=== PATIENT | female | born 1965 | race Caucasian/White ===

== ENCOUNTER 2017-11-02 14:25 | Emergency (ER) | payer MEDICAID ==
[~2017-11-02] VITALS: Ht 170.2 cm; Wt 75.0 kg
[~2017-11-02 14:25] MED LIST: ADVA100A INH; ATEN50TA PO; BACL20TA PO; BUTA1CAP PO; CALTTAB PO; CYMB60CA PO; DICL1GEL7 TOPICAL; GABA300C5 PO; HYDR50TA94 PO; LACT10SO PO; LEVO.05 PO; LISI-515 PO; LORA10TA PO; LORA1POW7; MELO15TA20 PO; OMEP40CA2 PO; PLAQ200T PO; TRAZ50TA12 PO
[2017-11-02 14:26] VITALS: BP 162/89; PULSE 90; RESP 18; TEMP 98.7; O2SAT 100
[2017-11-02] MEDS ORDERED: IBUP1TAB7 PO (15:28)
[2017-11-02] MEDS ORDERED: PROMSYP3 PO (15:28)
--- NOTE | 2017-11-02 15:35 | PD ---
HPI . Chest pain Chief Complaint: Cold / Flu Symptoms Time Seen by Provider: 15:18 Travel History International Travel<30 days: No Contact w/Intl Traveler<30days: No Traveled to known affect area: No History of Present Illness HPI This patient presents with a chief complaint of chest discomfort associated with coughing. Onset was 3 days ago. Symptoms are continuous. She rates her pain 7/10. Her symptoms have been unrelieved by [id number]-[id number] cough syrup. PFSH Past Medical History Anemia: Yes Arthritis: Yes (RHEUMATOID) Asthma: Yes Autoimmune Disease: Yes (RHEU ARTHRITIS) Blood Disorders: Yes (ANEMIA) Anxiety: Yes Depression: Yes Cancer: Yes (UTERINE AND OVARIAN) Cardiovascular Problems: Yes Chemotherapy: Yes Diabetes: Yes Diminished Hearing: No Endocrine: Yes Gastrointestinal Disorders: No Genitourinary: No Implanted Vascular Access Dvce: No Neurologic: No Psychiatric: Yes (PTSD) Reproductive: No Respiratory: Yes (COPD) Immunizations Current: Yes Thyroid Disease: Yes PNEUMOCCOCAL Vaccine (Year): 2 Menopausal: Yes Past Surgical History Abdominal Surgery: Yes (BOWEL RESECTION FOR CA) Appendectomy: Yes Gynecologic Surgery: Yes (HYSTERECTOMY) Hysterectomy: Yes Thoracic Surgery: Yes (CHEST TUBE FOR PNEUMO) Tonsillectomy: Yes Other Surgery: Yes (BREAST AUGMENTATION) Social History Alcohol Use: Yes (OCCASIONAALY) Tobacco Use: Yes (5 CIGS A DAY) Substance Use: No (MARIJUANA FORMER) Allergies-Medications (Allergen,Severity, Reaction): Coded Allergies: Sulfa (Sulfonamide Antibiotics) (Unverified Allergy, Severe, TOPICAL - TALBOT, INTERNAL = HEMMORAGE, 05/21/17) codeine (Unverified Allergy, Severe, HIVES, ITCH, LOCK JAW, 05/21/17) tramadol (Unverified Allergy, Severe, CANNOT TAKE WITH THYROID MED., ) ondansetron (Unverified Allergy, Unknown, Nausea/Vomiting, 05/21/17) Reported Meds & Prescriptions Reported Meds & Active Scripts Active Promethazine-Dextromethorphan Liq (Dextromethorphan-Promethazine Liq) 6.25-15 Mg /5 Ml Syrp 10 Ml PO Q6HR Ibuprofen 800 Mg Tab 800 Mg PO Q8H PRN Lactulose Liq (Lactulose) 10 Gm/15 Ml Soln 15 Ml PO HS Caltrate 600+D (Calcium Carbonate-Cholecalciferol) 600-800 Mg-Unit Tab 1 Tab PO BID Cymbalta DR (Duloxetine HCl) 60 Mg Capdr 2 Tab PO DAILY Gabapentin 300 Mg Cap 400 Mg PO QID Fioricet (Ffykvxvwxl-Wbdmaesjzdwub-Hjgstsvp) 50-300-40 Mg Cap 1 Cap PO Q4HR PRN Reported Trazodone (Trazodone HCl) 50 Mg Tab 50 Mg PO HS Meloxicam 15 Mg Tab 15 Mg PO DAILY Loratadine 10 Mg Tab 10 Mg PO DAILY Loratadine (Loratadine (Bulk)) 1 Pow Pow Lisinopril 20 Mg Tab 20 Mg PO DAILY Hydroxyzine HCl 50 Mg Tab 50 Mg PO QID PRN Atenolol 50 Mg Tab 50 Mg PO DAILY Advair Diskus Inh (Fluticasone-Salmeterol Inh) 100-50 Mcg/Blist Aer 1 Puff INH BID Rinse mouth after use. Baclofen 20 Mg Tab 20 Mg PO BID Synthroid (Levothyroxine Sodium) 50 Mcg Tab 50 Mcg PO DAILY Omeprazole 40 Mg Cap 40 Mg PO DAILY Plaquenil (Hydroxychloroquine Sulfate) 200 Mg Tab 200 Mg PO BID Take with food Diclofenac Topical 1% Gel 1 Applic TOPICAL QID Review of Systems Except as stated in HPI: all other systems reviewed are Neg General / Constitutional: No: Fever, Chills Cardiovascular: Positive: Chest Pain or Discomfort Respiratory: Positive: Cough Physical Exam Narrative GENERAL: Awake and alert and in no acute distress. SKIN: warm/dry. Normal color and turgor. HEAD: Normocephalic. Atraumatic. EYES: Pupils equal and round. No scleral icterus. No injection or drainage. ENT: No nasal bleeding or discharge. Mucous membranes pink and moist. NECK: Trachea midline. Full range of motion without pain.. CARDIOVASCULAR: Regular rate and rhythm. She is not tachycardic. Heart sounds are normal. RESPIRATORY: No accessory muscle use. Clear to auscultation. Breath sounds equal bilaterally. She is not tachypneic. Sats are 100% on room air. GASTROINTESTINAL: Abdomen soft. Nontender. Bowel sounds present. Nondistended. MUSCULOSKELETAL: No obvious deformities. NEUROLOGICAL: Awake and alert. No obvious cranial nerve deficits. Motor grossly within normal limits. Normal speech. PSYCHIATRIC: Appropriate mood and affect; insight and judgment normal. Data Data Last Documented VS Vital Signs Date Time Temp Pulse Resp B/P (MAP) Pulse Ox O2 Delivery O2 Flow Rate FiO2 11/02/17 14:26 98.7 90 18 162/89 (113) 100 Room Air Orders Orders Electrocardiogram (11/02/17 ) Ed Discharge Order (11/02/17 15:28) MDM Medical Decision Making Medical Screen Exam Complete: Yes Emergency Medical Condition: Yes Interpretation(s) EKG shows a normal sinus rhythm with no acute ischemic change. It is a normal EKG. Differential Diagnosis Differential diagnosis of chest pain includes but is not limited to musculoskeletal pain, pulmonary embolism, acute coronary syndrome, pneumonia, pleurisy Narrative Course Patient presents with chest discomfort associated with coughing. She has a normal EKG. Her physical exam is unremarkable. She will be treated symptomatically with Phenergan and Phenergan DM. She reports allergy to codeine. Diagnosis Primary Impression: Cough Patient Instructions: General Instructions Departure Forms: Tests/Procedures Scripts Dextromethorphan-Promethazine Liq (Promethazine-Dextromethorphan Liq) 6.25-15 Mg /5 Ml Syrp 10 ML PO Q6HR for cough, #120 Prov: Jessica Willams MD 11/02/17 Ibuprofen (Ibuprofen) 800 Mg Tab 800 MG PO Q8H Y for Pain/Inflammation, #60 TAB 0 Refills Prov: Jessica Willams MD 11/02/17 Disposition: 01 DISCHARGE HOME Condition: Stable Jessica Willams MD Nov 02, 2017 15:35
--- NOTE | 2017-11-03 12:26 | EKG ---
Date Performed: 11/02/2017 Time Performed: 14:36:52 PTAGE: 52 years EKG: Sinus rhythm NORMAL ECG PREVIOUS TRACING : 10/18/2010 01.52 Since the prior tracing, there has been no significant [place] DOCTOR: Alberto Anguiano Interpretating Date/Time 11/03/2017 12:23:20
== END 2017-11-02 15:43 | disposition home or self-care (01) ==
LOC: NEPD 14:25
DX: R05 Cough (principal); F17.210 Nicotine dependence, cigarettes, uncomplicated; J44.9 Chronic obstructive pulmonary disease, unspecified
CPT/HCPCS: 93005